=== PATIENT | female | born 1985 | race Caucasian/White ===

== ENCOUNTER 2024-02-05 08:36 | Emergency (ER) | payer OTHER, SELFPAY ==
[2024-02-05 08:51] VITALS: BP 145/88
--- NOTE | 2024-02-05 09:12 | ED.GENMED ---
History of Present Illness
General
Chief Complaint: Cold/Flu/URI Symptoms
Time Seen by Provider: 02/05/24 09:04
Travel History
Have you had any contact with someone who has COVID-19?: No
Do you have any symptoms of coronavirus? Fever > 100 degrees, chills, cough, shortness of breath, sore throat, loss of taste or smell, muscle aches, or headache?: No
History of Present Illness
History of Present Illness:
Patient presents to the emergency department with nasal congestion cough and dyspnea. States she has had intermittent episodes of this for the past few months. Episode self resolved. This episode started with nasal congestion. She notes
that she had a daughter at home nasal congestion as well on Tuesday. Since then she has developed worsening cough and some shortness of breath with cough. Denies fevers. Endorses some chest pain which she attributes to her cough. Denies any
history of lung disease. Denies history of smoking.
Past History
Past History
ED Past Medical History: None
ED Past Surgical History: None
Social History
Living: with family
Phy Exam
Physical Exam
Physical Exam:
General: No acute distress
Head: NCAT
Neck, Normal in appearance, no swelling
ENT: no erythema or exudates, no swelling
Respiratory: No Respiratory distress, lungs CTAB, no wheezing or rhonchi
Abdomen: No distension
Ext: no edema
Neuro: GASPAR, AOx4
Psych: Normal affect
Skin: Normal color
Course
Orders/Labs/Results
Orders:
Orders
02/05/24 09:10
CR Chest - 2 Views Urgent
Comment:
Reason For Exam: cp
02/05/24 09:16
Electrocardiogram (*1) Stat
Reason for Study: Other
Other Reason for Exam: chest pain
02/05/24 09:24
Troponin I Urgent
02/05/24 11:24
EKG [Electrocardiogram (*1)] Stat
Reason for Study: Chest Pain
02/05/24 11:25
EKG- Treatment ONCE
02/05/24 12:25
Doxycycline [Vibramycin] 100 mg PO NOW STA
02/05/24 12:26
Prednisone [Deltasone] 50 mg PO NOW STA
Vital Signs
Initial and Last Documented VS:
Initial Vital Signs
Temp Pulse Resp BP Pulse Ox
98.6 F 102 20 145/88 97
02/05/24 08:51 02/05/24 08:51 02/05/24 08:51 02/05/24 08:51 02/05/24 08:51
Last Documented Vital Signs
Temp Pulse Resp BP Pulse Ox
98.6 F 102 20 145/88 97
02/05/24 08:51 02/05/24 08:51 02/05/24 08:51 02/05/24 08:51 02/05/24 08:51
*Critical Care Note
Total Time (30-74mins, 75-104mins- exclusive of procedures): Not Applicable
ED Attending Note
ED Attending Note
ED Attending Note:
Patient presents with URI symptoms as well as cough and mild dyspnea with chest pain. Suspect infectious etiology, bronchitis. Will rule out myocarditis or pericarditis given chest pain. Do not suspect PE clinically, no evidence of DVT, no
pleuritic chest pain. Will check chest x-ray to rule out pneumonia.
Chest x-ray with possible mild developing pneumonia. Patient's draining well on room air. Low risk by curb 65. Will give p.o. antibiotics with close follow-up precautions.
-
Portions of this chart may have been created with voice recognition software.� Occasional wrong word or��sound alike� substitutions may have occurred due to the inherent limitations of voice recognition software.
Discharge Plan
Departure
Patient Disposition: Home (Routine Discharge)
Date of Disposition: 02/05/24
Time of Disposition: 12:27
Patient with high blood pressure during this ER visit?: Yes
Discharge Problem:
Pneumonia
Instructions: Community-acquired pneumonia in adults
Prescriptions:
New
doxycycline hyclate 100 mg capsule
100 mg PO BID 7 Days Qty: 14 0RF
prednisone 50 mg tablet
50 mg PO DAILY Qty: 5 0RF
No Action
No Current Medications
Referrals:
Tesfaye Morris MD [Family Provider] -
Activity Restrictions/Additional Instructions:
please follow up with your doctor for recheck in the next few days
return to ER if worse
Interventions
Interventions:
*Risk Screen - Suicide Last Done: 02/05/24 10:45
*General Assessment Last Done: 02/05/24 10:45
*Neglect/Abuse Screening Last Done: 02/05/24 10:45
ED- Fall Risk Assessment Last Done: 02/05/24 10:48
*ED COVID-19 Vaccine History Last Done: 02/05/24 10:45
ED- Pulmonary Assessment Last Done: 02/05/24 10:48
Discharge Date and Time
Print Language: [place] CITIZEN
[2024-02-05 09:55] LABS: Troponin I < 0.012 ng/ml
[2024-02-05 10:45] VITALS: BMI 49.8
[2024-02-05] MEDS: VIBRAMYCIN 100 MG PO (12:33)
[2024-02-05] MEDS: DELTASONE 50 MG PO (12:33)
[2024-02-05 13:01] VITALS: BP 132/88
== END 2024-02-05 13:02 | disposition home or self-care (01) ==
LOC: EMR 08:36
PROVIDERS: EMERGENCY PHYSICIAN Emergency Medicine; FAMILY PHYSICIAN Family Medicine
DX: J18.9 Pneumonia, unspecified organism (principal); R03.0 Elevated blood-pressure reading, without diagnosis of hypertension; Z88.0 Allergy status to penicillin
CPT/HCPCS: 99284; 71046; 84484; 93005

== ENCOUNTER 2024-12-26 13:52 | Emergency (ER) | payer OTHER, SELFPAY ==
[2024-12-26 13:54] VITALS: BP 145/96
--- NOTE | 2024-12-26 15:03 | ED.GENMED ---
History of Present Illness
General
Chief Complaint: Musculo-Skeletal Complaint
Time Seen by Provider: 12/26/24 15:03
History of Present Illness
History of Present Illness:
TIME OF INITIAL ENCOUNTER: 3 PM
HPI: The patient presents with nontraumatic right hand pain. The pain and symptoms worsen at night. The range of motion appears to be worsened with attempted dorsiflexion at the right wrist. She has had no fevers.
EXAM:
GENERAL: Well appearing in no distress
HEENT: Moist oral mucosa
NEUROLOGIC: Excellent strength all extremities, no obvious coordination deficits, however there is decreased strength into right wrist extension consistent with radial neuropathy, good strength in an ulnar and median nerve distribution
PSYCHIATRIC: Appropriate mental status, normal insight and judgement
EXTREMITIES: Nontender, no edema, moves all extremities equally, excellent radial pulse
SKIN: No rash, no lesions
NUMBER AND COMPLEXITY OF PROBLEMS ADDRESSED AT THE ENCOUNTER
� Chronic conditions affecting care: Has had gastric bypass, has had , otherwise no significant past medical history
� Acute Exacerbation and/or Progression of Chronic Illness: This is an acute problem
� Differential Diagnosis includes: Radial neuropathy, cervical radiculopathy, no clinical evidence for arterial compromise, no evidence for bony pathology/osteoarthritis
AMOUNT AND/OR COMPLEXITY OF DATA TO BE REVIEWED AND ANALYZED
� I performed an independent evaluation of and my interpretation is:
EKG:
CT:
X-rays: X-ray of the right hand shows no acute abnormality
Laboratory Studies:
Other:
� Review of other/old records: I reviewed records, the patient was treated for pneumonia as an outpatient after being seen in the Emergency Department 2023
� Clinical information was obtained by an independent historian: None needed
� Prescriptions/Medications Considered but not given:
� Further testing considered but not performed:
RISK OF COMPLICATIONS AND/OR MORBIDITY OR MORTALITY OF PATIENT MANAGEMENT
� Social determinants of health affecting care: Lives at home
� Discussion with other providers:
� Escalation of care including admission/observation vs risk of discharge considered: I recommend increased use of the splint that she already has and we can try adding gabapentin. I have also given her contact information for
local neurologist. X-rays unremarkable.
ANY OTHER UPDATES:
Past History
Past History
ED Past Medical History: None
ED Past Surgical History: None
Social History
Living: with family
Phy Exam
Physical Exam
Physical Exam:
See HPI
Course
Orders/Labs/Results
Orders:
Orders
12/26/24 13:53
Hand, Right 3 View [CR Hand - Right Min 3 Views] Urgent
Comment:
Reason For Exam: pain
Vital Signs
Initial and Last Documented VS:
Initial Vital Signs
Temp Pulse Resp BP Pulse Ox
36.6 C 65 16 145/96 100
12/26/24 13:54 12/26/24 13:54 12/26/24 13:54 12/26/24 13:54 12/26/24 13:54
Last Documented Vital Signs
Temp Pulse Resp BP Pulse Ox
36.6 C 65 16 145/96 100
12/26/24 13:54 12/26/24 13:54 12/26/24 13:54 12/26/24 13:54 12/26/24 13:54
*Critical Care Note
Total Time (30-74mins, 75-104mins- exclusive of procedures): Not Applicable
ED Attending Note
-
Portions of this chart may have been created with voice recognition software.� Occasional wrong word or��sound alike� substitutions may have occurred due to the inherent limitations of voice recognition software.
Discharge Plan
Departure
Patient Disposition: Home (Routine Discharge)
Date of Disposition: 12/26/24
Time of Disposition: 15:11
Patient with high blood pressure during this ER visit?: Yes
Discharge Problem:
Neuropathy of right radial nerve
Instructions: Neuropathic pain, BLOOD PRESSURE
Prescriptions:
New
gabapentin 300 mg capsule
300 mg PO TID Qty: 21 0RF
No Action
No Current Medications
doxycycline hyclate 100 mg capsule
100 mg PO BID 7 Days Qty: 14 0RF
prednisone 50 mg tablet
50 mg PO DAILY Qty: 5 0RF
Referrals:
Fabiola Contreras MD [Non-Admitting Privileges] - Follow up in 2-3 days
Activity Restrictions/Additional Instructions:
Given your history of gastric bypass, I recommend limited use of Motrin and Tylenol would be safer. I am sending a prescription for gabapentin to your pharmacy in case this could be nerve related type of pain. I also recommend that you follow-up
with a neurologist such as Dr. Fabiola Contreras. Try to increase the use of the splint more frequently. X-ray of the right hand shows no acute abnormality. Your blood flow seems normal. Return here if worse or other concerns.
Interventions
Interventions:
*Risk Screen - Suicide Last Done: 12/26/24 13:54
*General Assessment Last Done: 12/26/24 13:54
*Neglect/Abuse Screening Last Done: 12/26/24 13:54
*ED COVID-19 Vaccine History Last Done: 12/26/24 13:54
Discharge Date and Time
Print Language: BENINESE
== END 2024-12-26 15:46 | disposition home or self-care (01) ==
LOC: EMR 13:52
PROVIDERS: EMERGENCY PHYSICIAN Emergency Medicine; FAMILY PHYSICIAN Family Medicine
DX: G56.31 Lesion of radial nerve, right upper limb (principal); Z98.84 Bariatric surgery status
CPT/HCPCS: 99283; 73130